=== PATIENT | male | born 1960 | race Caucasian/White ===

== ENCOUNTER 2016-08-29 11:22 | Emergency (ER) | payer OTHER ==
[~2016-08-29] VITALS: Ht 170.2 cm; Wt 83.5 kg
[~2016-08-29 11:22] MED LIST: CYCLOBENZAPRINE10 M2 PO; DEXILANT60 MG PO
--- NOTE | 2016-08-29 11:37 | ED UPPER/LOWER EXTREMITY COMPL ---
History of Present Illness General Chief Complaint: Shoulder Injury Stated Complaint: LEFT SHOULDER PAIN Source: patient Exam Limitations: no limitations Vital Signs & Intake/Output Vital Signs & Intake/Output Vital Signs Date Time Temp Pulse Resp B/P Pulse O2 O2 Flow FiO2 Ox Delivery Rate 08/29 1212 97.0 66 22 139/63 96 Room Air 08/29 1125 96.9 61 18 159/69 97 Room Air Room Air Allergies Coded Allergies: NSAIDS (Non-Steroidal Anti-Inflamma (Intermediate, R/T HIATAL HERNIA 08/29/16) aspirin (Intermediate, GI DISTRESS 08/29/16) Reconcile Medications Meloxicam (Mobic) 15 MG TABLET 1 TAB PO DAILY PRN PAIN Triage Note: TRIAGE: 56 Y/O MALE PRESETNS C/O 8/10 LEFT SHOULDER PAIN X 3 WEEKS - HAS NOT YET SEEN PCP. REPORTS, "I WAS HOPEFUL THAT THE PAIN WOULD GO AWAY." Triage Nurses Notes Reviewed? yes Onset: Gradual Duration: constant Timing: recent history Severity: moderate Severity Numbers: 6 HPI: Patient is a 56-year-old male who presents emergency room for the past 3 weeks he has noticed a gradual onset of left-sided shoulder is nonradiating pain that is made worse with left shoulder movements. 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 Patient has been taking aspirin and muscle relaxer with no relief of symptoms. Denies any extremity paresthesias or weakness denies any neck pain or elbow pain. Denies any extremity swelling. Patient does have a history of dislocations left shoulder with no surgical intervention ever performed. Past History Travel History Traveled to [place] past 21 day No Medical History Any Pertinent Medical History? see below for history Gastrointestinal: HIATAL HERNIA Surgical History Surgical History: non-contributory Psychosocial History What is your primary language Sudanese Tobacco Use: Never used ETOH Use: occasional use Illicit Drug Use: denies illicit drug use Family History Hx Contributory? No Review of Systems Review of Systems Constitutional: Reports: no symptoms. EENTM: Reports: no symptoms. Respiratory: Reports: no symptoms. Cardiovascular: Reports: no symptoms. Gastrointestinal/Abdominal: Reports: no symptoms. Genitourinary: Reports: no symptoms. Musculoskeletal: Reports: see HPI, joint pain. Skin: Reports: no symptoms. Neurological/Psychological: Reports: no symptoms. Hematologic/Endocrine: Reports: no symptoms. Immunological: Reports: no symptoms. All Other Systems: Reviewed and Negative Physical Exam Physical Exam General Appearance: well developed/nourished, no apparent distress, alert, awake , comfortable Head: atraumatic Eyes: Bilateral: normal appearance. Ears, Nose, Throat: hearing grossly normal Neck: normal inspection, supple, full range of motion Cardiovascular/Respiratory: no respiratory distress Back: normal inspection Neurologic/Tendon: normal sensation, normal motor functions, normal tendon functions, responds to pain, no evidence tendon injury Skin: intact, normal color, warm/dry Comments: Left shoulder noted normal inspection, moderate acromioclavicular point tenderness, decreased active range of motion noted with 60 of flexion abduction with pain. Left upper extremity dermatomes intact radial pulse +2 Left elbow normal inspection Nontender full active range of motion Progress Differential Diagnosis: arterial insufficiency, compartment syndrome, contusion, dislocation, DVT, fracture, gout, septic arthritis, sprain, tendon injury Plan of Care: Orders Procedure Date/time Status Durable Medical Equipment 08/29 1223 Active No osseous injuries noted and x-rays. Shoulder immobilizer was placed to left shoulder pre-and post-neurovascular was intact. Patient was strongly advised to follow-up with orthopedic doctor. Patient does have a history of hiatal hernia however are short-term basis NSAIDs were prescribed. (SAULO MATTHEWS,SHELDON) Diagnostic Imaging: Viewed by Me: Radiology Read. Radiology Impression: SEE COMMENTS Comments: PATIENT: ARY RICK PRESENT AGE: 56 PATIENT ACCOUNT NO: [id number] : 60 LOCATION: [facility] ORDERING PHYSICIAN: SHELDON MATTHEWS SERVICE DATE: 08/29/16 EXAM TYPE: RAD - XRY-SHOULDER COMPLETE-LEFT EXAMINATION: XR SHOULDER, LEFT CLINICAL INFORMATION: Left shoulder pain COMPARISON: None TECHNIQUE: AP external rotation, Grashey, scapular Y, and axillary views of the left shoulder. FINDINGS: The bones and soft tissues are notable for mild degeneration and erosive changes AC joint. No fracture. Glenohumeral and acromioclavicular alignment is anatomic with normal joint space. No abnormal soft tissue calcifications. IMPRESSION: No focal lesion or deformity. Minor erosive changes about the AC joint Departure Departure Disposition: HOME OR SELF CARE Condition: Stable Clinical Impression Primary Impression: Left shoulder pain Secondary Impressions: AC joint pain Referrals: AILYN GALICIA,KATHARINE TUTTLE (PCP/Family) Additional Instructions: As discussed BEGIN using the shoulder immobilizer placed on you in the emergency room for support and stability. BEGIN icing the area directly 20 minutes every 2 hours. Begin the prescription of meloxicam for pain and inflammation. Perceptions waiting at [facility] pharmacy. If no better in one week follow-up with orthopedic Marvel Zimmer MD. If symptoms worsen return to emergency room. Departure Forms: Customer Survey General Discharge Information Prescriptions: Current Visit Scripts Meloxicam (Mobic) 1 TAB PO DAILY PRN PAIN #10 TAB
--- NOTE | 2016-08-29 12:10 | RADIOLOGY REPORT ---
EXAMINATION: XR SHOULDER, LEFT CLINICAL INFORMATION: Left shoulder pain COMPARISON: None TECHNIQUE: AP external rotation, Grashey, scapular Y, and axillary views of the left shoulder. FINDINGS: The bones and soft tissues are notable for mild degeneration and erosive changes AC joint. No fracture. Glenohumeral and acromioclavicular alignment is anatomic with normal joint space. No abnormal soft tissue calcifications. IMPRESSION: No focal lesion or deformity. Minor erosive changes about the AC joint
[2016-08-29 12:12] VITALS: BP 139/63
[2016-08-29] MEDS ORDERED: MOBIC15 M1 PO (12:22)
== END 2016-08-29 12:45 ==
LOC: ERH 11:22
DX: M25.512 Pain in left shoulder (principal)
CPT/HCPCS: 73030-LT

== ENCOUNTER 2016-10-12 20:44 | Emergency (ER) | payer OTHER ==
[~2016-10-12] VITALS: Ht 170.2 cm; Wt 82.1 kg
[~2016-10-12 20:44] MED LIST changes: +MOBIC15 M1 PO
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
[2016-10-12] MEDS ORDERED: PERCOCET 5-3251 EACH PO (22:10)
[2016-10-12] MEDS ORDERED: CYCLOBENZAPRINE10 M1 PO (22:10)
[2016-10-12 22:14] VITALS: BP 145/70
== END 2016-10-12 22:15 ==
LOC: ERH 20:44
DX: S16.1XXA Strain of muscle, fascia and tendon at neck level, initial encounter (principal); S49.92XA Unspecified injury of left shoulder and upper arm, initial encounter; V89.2XXA Person injured in unspecified motor-vehicle accident, traffic, initial encounter; Y93.9 Activity, unspecified; Y92.9 Unspecified place or not applicable
CPT/HCPCS: 73000-LT

== ENCOUNTER 2017-12-20 06:15 | Emergency (ER) | payer OTHER ==
[~2017-12-20] VITALS: Ht 170.2 cm; Wt 81.6 kg
[~2017-12-20 06:15] MED LIST changes: +CYCLOBENZAPRINE10 M1 PO; +MEDROL4 M2 PO; +PERCOCET 5-3251 EACH PO
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
--- NOTE | 2017-12-20 07:01 | CT SCAN REPORT ---
EXAMINATION: CT ABDOMEN AND PELVIS WITHOUT CONTRAST CLINICAL INFORMATION: Left flank pain COMPARISON: 01/31/2017 TECHNIQUE: Multidetector volumetric imaging was performed from the superior aspect of the liver through the pubic symphysis. Sagittal and coronal reformatted images were obtained on the technologist's workstation. DLP: 374 mGy-cm FINDINGS: LUNG BASES: The visualized lung bases are unremarkable. LIVER, GALLBLADDER, AND BILIARY TREE: The liver is normal in size, shape, and attenuation. No focal hepatic lesion or biliary ductal dilatation is present. The gallbladder is unremarkable with no evidence of radiopaque gallstones, gallbladder wall thickening, or obvious pericholecystic inflammatory changes. PANCREAS: Unremarkable. SPLEEN: Unremarkable. ADRENAL GLANDS: Unremarkable. KIDNEYS AND URETERS: The kidneys are normal in size, shape, and attenuation. There is mild left hydroureteronephrosis. There is a 0.2 cm calculus at the ureterovesicular junction. No additional calculi are seen. BLADDER: Unremarkable. GASTROINTESTINAL TRACT: The stomach is unremarkable. The small bowel is normal in caliber. No obstruction. Normal appendix. Gadolinium colonic diverticulosis without diverticulitis. No colonic wall thickening or inflammatory change. No free air or free fluid. ABDOMINAL WALL: No significant hernia is appreciated. LYMPH NODES: Normal. VASCULAR: Unremarkable. PELVIC VISCERA: The prostate and seminal vesicles are unremarkable. OSSEOUS STRUCTURES: No acute or suspicious osseous abnormality. Mild degenerative changes of the hips. IMPRESSION: Mild left hydroureteronephrosis with a 0.2 cm obstructing calculus at the ureterovesicular junction.
[2017-12-20 07:34] LABS: ABSOLUTE BASOPHIL COUNT 0 /CUMM (0.0-0.2); ABSOLUTE EOSINOPHIL COUNT 0 /CUMM (0.0-0.7); ABSOLUTE GRANULOCYTE CT 15.1 /CUMM (1.4-6.5); ABSOLUTE LYMPH COUNT 0.7 /CUMM (1.2-3.4); ABSOLUTE MONOCYTE COUNT 0.4 /CUMM (0.10-0.60); BASOPHIL % 0.1 % (0.0-2.0); EOSINOPHIL % 0.1 % (0-5); GRANULOCYTE % 92.8 % (42.2-75.2); HEMATOCRIT 49.6 % (42-52); MEAN CORPUSCULAR HGB 30.8 PG (27.0-31.0); MEAN CORPUSCULAR HGB CONC 34.5 G/DL (33.0-37.0); MEAN CORPUSCULAR VOLUME 89.4 FL (80.0-94.0); MEAN PLATELET VOLUME 7.8 FL (7.4-10.4); PLATELET COUNT 296 /CUMM (130-400); RBC DISTRIBUTION WIDTH 14.1 % (11.5-14.5); RED BLOOD CELL CT 5.55 /CUMM (4.70-6.10); WHITE BLOOD CELL COUNT 16.3 /CUMM (4.8-10.8)
[2017-12-20 12:30] VITALS: BP 129/60
[2017-12-20] MEDS ORDERED: PERCOCET 5-3251 EACH PO (12:40)
[2017-12-20] MEDS ORDERED: FLOMAX0.4 M1 PO (12:40)
== END 2017-12-20 13:15 ==
LOC: ERH 06:15
PROVIDERS: Emergency Medicine
DX: N23 Unspecified renal colic (principal)
CPT/HCPCS: 74176; 81001; 96361; 96374; 96375; J0131; J2405

== ENCOUNTER → 2018-01-06 | Day surgery (SDC) | payer OTHER ==
[~2018-01-06] VITALS: Ht 170.2 cm; Wt 78.5 kg
[~2018-01-06] MED LIST changes: +FLOMAX0.4 M1 PO
--- NOTE | 2018-01-06 16:23 | Operative Report ---
Operative/Inv Procedure Report Surgery Date: 01/06/18 Name of Procedure: left ureteroscopy with laser lithotripsy , stone fragment removal and stent placement Pre-Operative Diagnosis: left UVJ stone 2mm with mild hydronephrosis Post-Operative Diagnosis: stone passed Estimated Blood Loss: bear Surgeon/Peanut Separator: Hilary Major MD Anesthesia: local monitored anesthesi Complications: none Condition: stable Operative Indication: left LQ pain and stone with hydroureteronephrosis Operative/Procedure Note Note: 57-year-old male with a history of left lower quadrant pain was found to have a left UVJ stone with mild hydroureteronephrosis. He was given the option of conservative management with Flomax versus ureteroscopy with laser lithotripsy and stone removal with possible stent placement. He opted to have surgery and in the meantime take Flomax to see if the stone pass prior to the surgery. He did not pass the stone. He has been taking lots of water. He was given the risks benefits and alternatives of the surgery and he wished to proceed. Consent was signed. Left side was marked as the site for surgery. Patient was taken to the operating placed on the operating table in supine position. Timeout was performed. IV antibodies were infused. LMA anesthesia was begun. Patient was placed in the dorsolithotomy position. He was prepped and draped in the standard sterile fashion. Cystoscopy was performed the bladder was globally inspected. Ureteral orifices were easily identified. The left ureteral orifice was cannulated with a sensor guidewire. A semirigid ureteroscope was then placed into the bladder and into the left ureteral orifice. The stone was not identified. The flexible digital ureteroscope was then used and placed up the ureter into the kidney over the sensor guidewire. Each of the calyces were examined upper mid and lower pole and no stones were seen. As the flexible digital ureteroscope was removed down the ureter ureter was examined once again and no stones were seen in the full length of the ureter or in the bladder. Bladder was emptied. Patient was cleaned of the Betadine solution. Transferred to recovery in stable condition. Findings: no Left UVJ stone and no kidney or ureteral stone Discharge Disposition: PACU Findings: Left UVJ stone Discharge Disposition: PACU
--- NOTE | 2018-01-07 17:26 | RADIOLOGY REPORT ---
EXAMINATION: FL FLUOROSCOPY-GUIDED URETEROSCOPY CLINICAL INFORMATION: Distal left ureteral calcification/calculi. COMPARISON: None TECHNIQUE: Fluoroscopy was provided to Dr. Major for left ureteroscopy. FINDINGS/IMPRESSION: On a single image obtained during the procedure, there is a ureteroscope and a guidewire in the left kidney pelvis. No radiopaque calcification seen on this exam, however, limited. FLUOROSCOPY TIME: 3.6 seconds
== END ==
LOC: STS 02:03
DX: N20.1 Calculus of ureter (principal); K44.9 Diaphragmatic hernia without obstruction or gangrene
CPT/HCPCS: 76000; J0690; J1100; J2405